=== PATIENT | male | born 1945 | race Caucasian/White ===

== ENCOUNTER 2018-06-08 17:34 | Emergency (ER) | payer MEDICARE, OTHER ==
[2018-06-08] MEDS ORDERED: 50% Dextrose in Water 50 ML Syringe IVPUSH ONE (19:28)
[2018-06-08] MEDS ORDERED: Sodium Chloride 0.9% 10 ML Syringe FLUSH PRN (19:28)
[2018-06-08] MEDS ORDERED: Sodium Bicarbonate 8.4% 50 MEQ/50 ML Syringe IVPUSH ONE (19:28)
[2018-06-08] MEDS ORDERED: Furosemide 20 MG/2 ML VIAL IVPUSH ONE (19:28)
[2018-06-08] MEDS ORDERED: Insulin Regular, Human 100 Units/ML 3 ML Vial IVPUSH ONE (19:28)
[2018-06-08] MEDS ORDERED: Sodium Chloride 0.9% 1,000 ML IV SCH (19:30)
--- NOTE | 2018-06-08 19:34 | EDM.PDOC ---
ED HPI GENERAL MEDICAL PROBLEM - General Chief Complaint: General Stated Complaint: WHITE COUNT IS HIGH Time Seen by Provider: 06/08/18 19:16 Source of Information: Reports: Patient, Family, Old Records, RN Notes Reviewed History Limitations: Reports: No Limitations - History of Present Illness INITIAL COMMENTS - FREE TEXT/NARRATIVE: sent to ed after blood work wbc at 120 and k 6.3 Onset: Today - Related Data Allergies Allergy/AdvReac Type Severity Reaction Status Date / Time hydrocodone Allergy Rash Verified 06/08/18 18:06 Home Meds: Home Meds Gabapentin [Neurontin] 300 mg PO TID PRN 06/08/18 [History] Hydrochlorothiazide [Microzide] 12.5 mg PO DAILY 06/08/18 [History] Hydrochlorothiazide/Lisinopril [Lisinopril/HCTZ 20-12.5 MG] 1 tab PO DAILY 06/08 [History] Insulin Detemir [Levemir Flextouch] 60 unit SQ ACBREAKFAST 06/08/18 [History] Insulin Lispro [HumaLOG] 6 unit SQ TID 06/08/18 [History] metFORMIN [Glucophage] 1,000 mg PO BIDMEALS 06/08/18 [History] Past Medical History HEENT History: Reports: Impaired Vision Endocrine/Metabolic History: Reports: Diabetes, Type II Oncologic (Cancer) History: Reports: Other (See Below) Other Oncologic History: chronic lymphotic leukemia - Infectious Disease History Infectious Disease History: Reports: Chicken Pox, Measles, Mumps - Past Surgical History GI Surgical History: Reports: Appendectomy Musculoskeletal Surgical History: Reports: Knee Replacement, Other (See Below) Other Musculoskeletal Surgeries/Procedures:: back surgery Social & Family History - Tobacco Use Smoking Status *Q: Never Smoker - Caffeine Use Caffeine Use: Reports: Coffee, Tea - Recreational Drug Use Recreational Drug Use: No ED ROS GENERAL - Review of Systems Review Of Systems: See Below Constitutional: Reports: Fatigue. Denies: Fever, Chills HEENT: Reports: No Symptoms Respiratory: Reports: No Symptoms Cardiovascular: Reports: No Symptoms GI/Abdominal: Reports: No Symptoms : Reports: No Symptoms ED EXAM, GENERAL - Physical Exam Exam: See Below Exam Limited By: No Limitations General Appearance: Alert, WD/WN, No Apparent Distress Respiratory/Chest: No Respiratory Distress, Lungs Clear, Normal Breath Sounds, No Accessory Muscle Use, Chest Non-Tender Cardiovascular: Regular Rate, Rhythm, No Murmur GI/Abdominal: Soft, Non-Tender Course - Vital Signs Last Recorded V/S: Last Vital Signs Temp 94.9 F L 06/08/18 17:58 Pulse 72 06/08/18 17:58 Resp 20 06/08/18 17:58 BP 123/55 L 06/08/18 17:58 Pulse Ox 98 06/08/18 17:58 - Orders/Labs/Meds Orders: Active Orders 24 hr Category Date Time Status EKG Documentation Completion [RC] ASDIRECTED Care 06/08/18 19:29 Ordered Peripheral IV Care [RC] . DIRECTED Care 06/08/18 19:29 Ordered Sodium Chloride 0.9% [Normal Saline] 1,000 ml Med 06/08/18 19:30 Ordered IV ASDIRECTED Sodium Chloride 0.9% [Saline Flush] Med 06/08/18 19:28 Ordered 10 ml FLUSH ASDIRECTED PRN Peripheral IV Insertion Adult [OM.PC] Urgent Oth 06/08/18 19:27 Ordered EKG 12 Lead [EK] Stat Ther 06/08/18 19:27 Ordered Medication Orders Sodium Chloride (Normal Saline) 1,000 mls @ 500 mls/hr IV ASDIRECTED MARIO ALBERTO Sodium Chloride (Saline Flush) 10 ml FLUSH ASDIRECTED PRN PRN Reason: Keep Vein Open Meds: Medications Generic Name Dose Route Start Last Admin Trade Name Freq PRN Reason Stop Dose Admin Sodium Chloride 1,000 mls @ 500 mls/hr 06/08/18 19:30 Normal Saline IV ASDIRECTED MARIO ALBERTO Sodium Chloride 10 ml 06/08/18 19:28 Saline Flush FLUSH ASDIRECTED PRN Keep Vein Open Discontinued Medications Generic Name Dose Route Start Last Admin Trade Name Freq PRN Reason Stop Dose Admin Dextrose/Water 50 ml 06/08/18 19:28 Dextrose 50% In Water IVPUSH 06/08/18 19:29 ONETIME ONE Furosemide 20 mg 06/08/18 19:28 Lasix IVPUSH 06/08/18 19:29 ONETIME ONE Insulin Human Regular 10 unit 06/08/18 19:28 Humulin R IVPUSH 06/08/18 19:29 ONETIME ONE Sodium Bicarbonate 50 meq 06/08/18 19:28 Sodium Bicarbonate 8.4% IVPUSH 06/08/18 19:29 ONETIME ONE Departure - Departure Time of Disposition: 19:41 Disposition: DC/Tfer to Acute Hospital 02 Condition: Poor Clinical Impression: Hyperleukocytosis - Discharge Information Referrals: PCP,None [Primary Care Provider] - Forms: ED Department Discharge - My Orders Last 24 Hours: My Active Orders 06/08/18 19:27 Peripheral IV Insertion Adult [OM.PC] Urgent EKG 12 Lead [EK] Stat 06/08/18 19:28 Sodium Chloride 0.9% [Saline Flush] 10 ml FLUSH ASDIRECTED PRN 06/08/18 19:29 EKG Documentation Completion [RC] ASDIRECTED Peripheral IV Care [RC] . DIRECTED 06/08/18 19:30 Sodium Chloride 0.9% [Normal Saline] 1,000 ml IV ASDIRECTED - Assessment/Plan Last 24 Hours: My Active Orders 06/08/18 19:27 Peripheral IV Insertion Adult [OM.PC] Urgent EKG 12 Lead [EK] Stat 06/08/18 19:28 Sodium Chloride 0.9% [Saline Flush] 10 ml FLUSH ASDIRECTED PRN 06/08/18 19:29 EKG Documentation Completion [RC] ASDIRECTED Peripheral IV Care [RC] . DIRECTED 06/08/18 19:30 Sodium Chloride 0.9% [Normal Saline] 1,000 ml IV ASDIRECTED Plan: Assessment Acuity = acute Site and laterality = hyperleukocytosis complicated patient with known history of CLL Etiology = unknown etiology Manifestations = fatigue Location of injury = Home Lab values = no lab work performed at this facility lab work from [facility] reveals a potassium 6.3 consistent with hyperkalemia creatinine 1.6 consistent with chronic renal failure stage G IIIB WBC elevated at 124 months ago this value was 42 hemoglobin 10.6 remainder of CBC unremarkable, EKG is pending Plan Called discussed case Dr. Dill at 1935 kindly accepted the patient [facility] will be transported via EMS ground so far he has been given 1 L normal saline 1 amp of bicarbonate one amp of D50 followed by 10 units insulin and 20 mg Lasix will be transported via EMS ground This note was dictated using [employer] voice recognition software please call with any questions on syntax or grammar.
== END 2018-06-08 20:33 ==
LOC: JP.ED 17:34
DX: D72.829 Elevated white blood cell count, unspecified (principal); E11.9 Type 2 diabetes mellitus without complications; Z85.6 Personal history of leukemia; Z79.899 Other long term (current) drug therapy; Z88.6 Allergy status to analgesic agent; Z79.4 Long term (current) use of insulin
CPT/HCPCS: 93005; 96374; 96375; 99284; A4216; J1815; J1940; J7030; 99285

== ENCOUNTER 2023-05-21 14:07 | Emergency (ER) | payer MEDICARE ==
[2023-05-21 16:00] LABS: HEMOGLOBIN 10.8 g/dL (12.9-16.9); MEAN CORPUSCULAR HGB CONC 32.7 g/dL (31.6-35.5); MEAN CORPUSCULAR VOLUME 97.9 fL (81.4-99.0); PLATELET COUNT,PLT 156 K/uL (130-375); RED BLOOD CELL COUNT 3.37 M/uL (4.14-5.76)
[2023-05-21 16:02] LABS: WHITE BLOOD CELL COUNT,WBC 66.6 K/uL (3.2-11.0)
[2023-05-21 16:18] LABS: ATYPICAL LYMPHOCYTES FEW; EOSINOPHILS ABSOLUTE MAN 0.67 K/uL (0.00-0.40); EOSINOPHILS PERCENT MAN 1 % (2-4); LYMPHOCYTES ABSOLUTE MAN 59.27 K/uL (0.8-3.3); LYMPHOCYTES PERCENT MAN 89 % (24-44); MONOCYTES ABSOLUTE MAN 1.33 K/uL (0.20-0.90); MONOCYTES PERCENT MAN 2 % (2-6); NEUTROPHILS ABSOLUTE MAN 5.33 K/uL (1.0-7.6); SEG NEUTROPHILS PERCENT MAN 8 % (36-66)
[2023-05-21 16:19] LABS: A/G RATIO 1.4 (1.2-2.2); ALANINE AMINOTRANSFERASE,ALT 7 U/L (12-78); ALBUMIN 3.6 g/dL (3.4-5.0); ALKALINE PHOSPHATASE 121 U/L (46-116); ANION GAP 9.5 mmol/L (5.0-14.0); ASPARTATE AMNIOTRANSFERASE,AST 20 U/L (15-37); BILIRUBIN TOTAL 0.4 mg/dL (0.2-1.0); BLOOD UREA NITROGEN,BUN 24 mg/dL (7-18); CALCIUM 8.5 mg/dL (8.5-10.1); CARBON DIOXIDE,CO2 26 mmol/L (21-32); CHLORIDE,CL 106 mmol/L (100-108); CREATININE 1.3 mg/dL (0.8-1.3); EST CRCL DRUG DOSING (CG) 51.49 mL/min; ESTIMATED GFR 57 mL/min (>60); GLUCOSE RANDOM 98 mg/dL (74-106); POTASSIUM,K 4.6 mmol/L (3.6-5.2); PROTEIN TOTAL,TP 6.2 g/dL (6.4-8.2); SODIUM,NA 141 mmol/L (140-148)
[2023-05-21] MEDS: Acetaminophen 500 MG Tab PO ONE (16:56)
[2023-05-21] MEDS: Sodium Chloride 0.9% 1,000 ML IV ONE (16:56)
[2023-05-21 17:51] LABS: APPEARANCE,URINE SLIGHTLY CLOUDY (CLEAR); BILIRUBIN,URINE NEGATIVE (NEGATIVE); COLOR,URINE YELLOW (YELLOW); GLUCOSE,URINE NEGATIVE (NEGATIVE); KETONES,URINE NEGATIVE (NEGATIVE); LEUKOCYTE ESTERASE,URINE SMALL (NEGATIVE); NITRITE,URINE NEGATIVE (NEGATIVE); OCCULT BLOOD,URINE NEGATIVE (NEGATIVE); PH,URINE 5.5 (5.0-8.0); PROTEIN,URINE TRACE mg/dL (NEGATIVE); UROBILINOGEN,URINE 0.2 EU/dL (0.2-1.0)
[2023-05-21 17:56] LABS: AMORPHOUS SEDIMENT,URINE NOT SEEN; BACTERIA,URINE RARE; EPITHELIAL CELLS,URINE RARE; MUCUS,URINE NOT SEEN; RBC,URINE 0-5 (0-5)
== END 2023-05-21 18:30 | disposition home or self-care (01) ==
LOC: JP.ED 14:07
DX: K40.90 Unilateral inguinal hernia, without obstruction or gangrene, not specified as recurrent (principal); D72.829 Elevated white blood cell count, unspecified; C91.10 Chronic lymphocytic leukemia of B-cell type not having achieved remission; E11.9 Type 2 diabetes mellitus without complications; Z88.6 Allergy status to analgesic agent; Z79.4 Long term (current) use of insulin; Z79.899 Other long term (current) drug therapy; Z79.84 Long term (current) use of oral hypoglycemic drugs
CPT/HCPCS: 36415; 80053; 81001; 85025; 96360; 99284; A9270; J7030

== ENCOUNTER 2023-09-30 09:37 | Day surgery (SDC) | payer MEDICARE ==
[2023-09-30 10:10] LABS: HEMATOCRIT 33.7 % (38.4-49.7); HEMOGLOBIN 11.3 g/dL (12.9-16.9); MEAN CORPUSCULAR HEMOGLOBIN 31.3 pg (31.6-35.5); MEAN CORPUSCULAR HGB CONC 33.5 g/dL (31.6-35.5); MEAN CORPUSCULAR VOLUME 93.4 fL (81.4-99.0); RED BLOOD CELL COUNT 3.61 M/uL (4.14-5.76); WHITE BLOOD CELL COUNT,WBC 29.3 K/uL (3.2-11.0)
[2023-09-30] MEDS ORDERED: Dexamethasone 4 MG/ML SDV ONE (10:27)
[2023-09-30] MEDS ORDERED: Neostigmine Methylsulfate 10 MG/10 ML MDV ONE (10:27)
[2023-09-30] MEDS ORDERED: Rocuronium 50 MG/5 ML Vial ONE (10:27)
[2023-09-30] MEDS ORDERED: Glycopyrrolate 0.2 MG/ML 5 ML MDV ONE (10:27)
[2023-09-30] MEDS ORDERED: Ondansetron 4 MG/2 ML SDV ONE (10:27)
[2023-09-30] MEDS ORDERED: Propofol 200 MG/20 ML SDV ONE (10:27)
[2023-09-30] MEDS ORDERED: Succinylcholine 200 MG/10 ML MDV ONE (10:27)
[2023-09-30] MEDS ORDERED: fentaNYL 250 MCG/5 ML SDV ONE (10:27)
[2023-09-30 10:30] LABS: A/G RATIO 1.2 (1.2-2.2); ALANINE AMINOTRANSFERASE,ALT 14 U/L (12-78); ALBUMIN 3.6 g/dL (3.4-5.0); ALKALINE PHOSPHATASE 149 U/L (46-116); ASPARTATE AMNIOTRANSFERASE,AST 15 U/L (15-37); BILIRUBIN TOTAL 0.5 mg/dL (0.2-1.0); BLOOD UREA NITROGEN,BUN 20 mg/dL (7-18); CALCIUM 8.6 mg/dL (8.5-10.1); CARBON DIOXIDE,CO2 24 mmol/L (21-32); CHLORIDE,CL 103 mmol/L (100-108); CREATININE 1.1 mg/dL (0.8-1.3); ESTIMATED GFR 69 mL/min (>60); GLUCOSE RANDOM 99 mg/dL (74-106); POTASSIUM,K 4.7 mmol/L (3.6-5.2); PROTEIN TOTAL,TP 6.5 g/dL (6.4-8.2); SODIUM,NA 137 mmol/L (140-148)
[2023-09-30] MEDS ORDERED: ceFAZolin 2 GM in Sodium Chloride 0.9% 100 ML IV ONE (10:30)
[2023-09-30 10:40] LABS: ANION GAP 14.7 mmol/L (5.0-14.0)
[2023-09-30] MEDS: Sodium Chloride 0.9% 1,000 ML IV SCH (11:19)
[2023-09-30] MEDS: metroNIDAZOLE/Normal Saline 500 MG in Premix Bag 1 BAG IV ONE (11:30)
[2023-09-30] MEDS: Ropivacaine 35 ML, dexAMETHasone 8 MG, EPINEPHrine 0.4 MG, Sodium Chloride 0.9% 42.6 ML NERVRT SCH (12:20)
[2023-09-30] MEDS: Bupivacaine 0.5%/EPINEPHrine 1:200,000 50 ML MDV ONE (12:25)
[2023-09-30] MEDS: ceFAZolin 2 GM in Premix Bag 1 BAG IV ONE (12:30)
[2023-09-30] MEDS ORDERED: Lactated Ringers 1,000 ML ONE (13:20)
[2023-09-30] MEDS ORDERED: Sugammadex Sodium 200 MG/2 ML VIAL IV ONE (13:41)
[2023-09-30] MEDS: oxyCODONE 5 MG Tab PO PRN (17:23)
== END 2023-09-30 18:30 | disposition home or self-care (01) ==
LOC: JP.SDS 09:37
PROVIDERS: ATTEND Surgery
DX: K40.31 Unilateral inguinal hernia, with obstruction, without gangrene, recurrent (principal); I12.9 Hypertensive chronic kidney disease with stage 1 through stage 4 chronic kidney disease, or unspecified chronic kidney disease; E11.22 Type 2 diabetes mellitus with diabetic chronic kidney disease; N18.30 Chronic kidney disease, stage 3 unspecified; E78.5 Hyperlipidemia, unspecified; Z88.5 Allergy status to narcotic agent
CPT/HCPCS: 00840; 36415; 36591; 49521; 80053; 82947; 85027; A9270; C1781; J0171; J0330; J0690; J1100; J1596; J1642; J1836; J2405; J2704; J2710; J2795; J3010; J3490; J7030; J7120

== ENCOUNTER 2024-09-01 16:55 | Inpatient (IN) | payer MEDICARE ==
[2024-09-01 17:30] LABS: APPEARANCE,URINE CLEAR (CLEAR); GLUCOSE,URINE NEGATIVE (NEGATIVE); OCCULT BLOOD,URINE NEGATIVE (NEGATIVE)
[2024-09-01 17:37] LABS: SQUAMOUS EPITHELIAL CELLS,UR NOT SEEN /HPF
[2024-09-01 18:09] LABS: PLATELET COUNT,PLT 224 K/uL (130-375); RED BLOOD CELL COUNT 3.68 M/uL (4.14-5.76); WHITE BLOOD CELL COUNT,WBC 15.8 K/uL (3.2-11.0)
[2024-09-01 18:15] LABS: BASE EXCESS VENOUS -3.7 mm/L; BICARBONATE,VENOUS 22.1 mmol/L; O2 SATURATION VENOUS 42.1; OXYHEMOGLOBIN 40.7 %; PCO2 VENOUS 44.8 mm/Hg; PH,VENOUS 7.313 (7.350-7.450); PO2 VENOUS 26.9 mm/Hg; TOTAL HEMOGLOBIN 13.4 g/dL (13.5-18.0)
[2024-09-01 18:27] LABS: ATYPICAL LYMPHOCYTES FEW; EOSINOPHILS ABSOLUTE MAN 0.16 K/uL (0.00-0.40); EOSINOPHILS PERCENT MAN 1 % (2-4); LYMPHOCYTES ABSOLUTE MAN 4.58 K/uL (0.8-3.3); LYMPHOCYTES PERCENT MAN 29 % (24-44); MONOCYTES ABSOLUTE MAN 0.47 K/uL (0.20-0.90); MONOCYTES PERCENT MAN 3 % (2-6); NEUTROPHILS ABSOLUTE MAN 10.59 K/uL (1.0-7.6); SEG NEUTROPHILS PERCENT MAN 67 % (36-66)
[2024-09-01 18:30] LABS: A/G RATIO 1.3 (1.2-2.2); ALANINE AMINOTRANSFERASE,ALT 12 U/L (12-78); ASPARTATE AMNIOTRANSFERASE,AST 16 U/L (15-37); BILIRUBIN TOTAL 0.4 mg/dL (0.2-1.0); BLOOD UREA NITROGEN,BUN 38 mg/dL (7-18); CARBON DIOXIDE,CO2 24 mmol/L (21-32); CHLORIDE,CL 102 mmol/L (100-108); CREATININE 1.7 mg/dL (0.8-1.3); EST CRCL DRUG DOSING (CG) 36.76 mL/min; ESTIMATED GFR 41 mL/min (>60); GLUCOSE RANDOM 175 mg/dL (74-106); POTASSIUM,K 5.0 mmol/L (3.6-5.2); PROTEIN TOTAL,TP 6.1 g/dL (6.4-8.2); SODIUM,NA 137 mmol/L (140-148)
[2024-09-01] MEDS ORDERED: Sodium Chloride 0.9% 10 ML Syringe FLUSH PRN (22:38)
[2024-09-01] MEDS ORDERED: Magnesium Hydroxide 400 MG/5 ML Susp 30 ML Cup PO PRN (22:38)
[2024-09-01] MEDS ORDERED: Ondansetron 4 MG/2 ML SDV IV PRN (22:38)
[2024-09-01] MEDS ORDERED: Ondansetron 4 MG Tab.DIS PO PRN (22:38)
[2024-09-01] MEDS ORDERED: Sennosides/Docusate Sodium 50-8.6 MG Tab PO PRN (22:38)
[2024-09-01] MEDS: Magnesium Sulfate 2 GM/50 mL 2 GM in Premix Bag 1 BAG IV ONE (23:11)
[2024-09-02 00:23] LABS: BASOPHILS ABSOLUTE AUTO 0.09 K/uL (0.00-0.10); BASOPHILS PERCENT AUTO 0.7 % (0.1-1.3); EOSINOPHILS ABSOLUTE AUTO 0.20 K/uL (0.00-0.40); EOSINOPHILS PERCENT AUTO 1.5 % (0.0-5.4); IMMATURE GRAN ABSOLUTE AUTO 0.13 K/uL (0.00-0.23); IMMATURE GRAN PERCENT AUTO 1.0 % (0.0-0.7); LYMPHOCYTES ABSOLUTE AUTO 5.97 K/uL (0.8-3.3); LYMPHOCYTES PERCENT AUTO 44.5 % (11.4-47.7); MONOCYTES ABSOLUTE AUTO 0.78 K/uL (0.20-0.90); MONOCYTES PERCENT AUTO 5.8 % (3.3-12.6); NEUTROPHILS ABSOLUTE AUTO 6.26 K/uL (1.0-7.6); NEUTROPHILS PERCENT AUTO 46.5 % (40.0-78.1); PLATELET COUNT,PLT 223 K/uL (130-375); RED BLOOD CELL COUNT 3.46 M/uL (4.14-5.76); WHITE BLOOD CELL COUNT,WBC 13.4 K/uL (3.2-11.0)
[2024-09-02 00:33] LABS: BLOOD UREA NITROGEN,BUN 33.0 mg/dL (7-18); CARBON DIOXIDE,CO2 24.0 mmol/L (21-32); CHLORIDE,CL 105.0 mmol/L (100-108); CREATININE 1.2 mg/dL (0.8-1.3); EST CRCL DRUG DOSING (CG) 44.89 mL/min; ESTIMATED GFR 62.0 mL/min (>60); GLUCOSE RANDOM 147.0 mg/dL (74-106); POTASSIUM,K 4.6 mmol/L (3.6-5.2); SODIUM,NA 140.0 mmol/L (140-148)
[2024-09-02 00:44] LABS: LACTIC ACID 4.4 mmol/L (0.4-2.0)
[2024-09-02] MEDS: Iopamidol 755 Mg/ML 100 ML Bottle IV SCH (01:47)
[2024-09-02] MEDS: Sodium Chloride 0.9% 10 ML Syringe FLUSH PRN (01:48)
[2024-09-02] MEDS ORDERED: Insulin Lispro 100 Unit/ML 3 ML KwikPen SUBCUT SCH (03:15)
[2024-09-02 04:29] LABS: BASOPHILS ABSOLUTE AUTO 0.10 K/uL (0.00-0.10); BASOPHILS PERCENT AUTO 0.6 % (0.1-1.3); EOSINOPHILS ABSOLUTE AUTO 0.29 K/uL (0.00-0.40); EOSINOPHILS PERCENT AUTO 1.8 % (0.0-5.4); IMMATURE GRAN ABSOLUTE AUTO 0.04 K/uL (0.00-0.23); IMMATURE GRAN PERCENT AUTO 0.3 % (0.0-0.7); LYMPHOCYTES ABSOLUTE AUTO 7.70 K/uL (0.8-3.3); LYMPHOCYTES PERCENT AUTO 48.9 % (11.4-47.7); MONOCYTES ABSOLUTE AUTO 0.90 K/uL (0.20-0.90); MONOCYTES PERCENT AUTO 5.7 % (3.3-12.6); NEUTROPHILS ABSOLUTE AUTO 6.72 K/uL (1.0-7.6); NEUTROPHILS PERCENT AUTO 42.7 % (40.0-78.1); PLATELET COUNT,PLT 229 K/uL (130-375); RED BLOOD CELL COUNT 3.51 M/uL (4.14-5.76); WHITE BLOOD CELL COUNT,WBC 15.8 K/uL (3.2-11.0)
[2024-09-02 04:43] LABS: BLOOD UREA NITROGEN,BUN 28 mg/dL (7-18); CARBON DIOXIDE,CO2 26 mmol/L (21-32); CHLORIDE,CL 106 mmol/L (100-108); CREATININE 1.1 mg/dL (0.8-1.3); EST CRCL DRUG DOSING (CG) 48.97 mL/min; ESTIMATED GFR 69 mL/min (>60); GLUCOSE RANDOM 146 mg/dL (74-106); POTASSIUM,K 4.6 mmol/L (3.6-5.2); SODIUM,NA 139 mmol/L (140-148)
[2024-09-02] MEDS: Lactobacillus Rhamnosus GG (Probiotic) Cap PO SCH (08:21)
[2024-09-02] MEDS: Sodium Chloride 0.9% 10 ML Syringe FLUSH ONE (12:46)
[2024-09-02] MEDS: Insulin Lispro 100 Unit/ML 3 ML KwikPen SUBCUT SCH (12:49)
[2024-09-02] MEDS: Iopamidol 612 MG/ML 100 ML Bottle IV ONE (13:29)
[2024-09-02] MEDS: Carbidopa/Levodopa 50-200 MG Tab.ER PO SCH (18:24)
[2024-09-03] MEDS: Divalproex Sodium Delayed-Release 125 MG Cap.Sprink PO ONE (09:03)
[2024-09-03] MEDS: BRUKINSA 80 MG PO SCH (12:48)
== END 2024-09-03 13:05 | disposition home health service (06) | DRG 683 ==
LOC: JP.ED 16:55 → JP.MS 22:06
PROVIDERS: ADMIT Nurse Practitioner; ATTEND Internal Medicine
DX: N17.9 Acute kidney failure, unspecified (principal); I95.9 Hypotension, unspecified; C91.10 Chronic lymphocytic leukemia of B-cell type not having achieved remission; E87.20 Acidosis, unspecified; R53.1 Weakness; E86.0 Dehydration; H54.7 Unspecified visual loss; H91.90 Unspecified hearing loss, unspecified ear; M19.90 Unspecified osteoarthritis, unspecified site; Z87.81 Personal history of (healed) traumatic fracture; G20.A1 Parkinson's disease without dyskinesia, without mention of fluctuations; Z96.659 Presence of unspecified artificial knee joint; E11.22 Type 2 diabetes mellitus with diabetic chronic kidney disease; I12.9 Hypertensive chronic kidney disease with stage 1 through stage 4 chronic kidney disease, or unspecified chronic kidney disease; N18.9 Chronic kidney disease, unspecified; E83.42 Hypomagnesemia; F02.80 Dementia in other diseases classified elsewhere, unspecified severity, without behavioral disturbance, psychotic disturbance, mood disturbance, and anxiety; Z88.5 Allergy status to narcotic agent; Z91.013 Allergy to seafood; R09.02 Hypoxemia; Z98.49 Cataract extraction status, unspecified eye; Z88.8 Allergy status to other drugs, medicaments and biological substances; Z98.890 Other specified postprocedural states; Z79.899 Other long term (current) drug therapy; Z79.84 Long term (current) use of oral hypoglycemic drugs; E11.9 Type 2 diabetes mellitus without complications; Z86.16 Personal history of COVID-19; Z90.49 Acquired absence of other specified parts of digestive tract
CPT/HCPCS: 36415; 70551; 71045; 71275; 74177; 74177-26; 80048; 80053; 81001; 82803; 82947; 83605; 83735; 84443; 84484; 85025; 85379; 86140; 87040; 87426-QW; 93005; 93010; 96361; 96365; 97161-GP; 97165-GO; 99222; 99232; 99238; 99285; 99285-25; A9270-GY; J0696; J1650; J3475; J7030; Q9967